=== PATIENT | female | born 1955 | race Caucasian/White ===

== ENCOUNTER 2023-01-05 08:02 | Emergency (ER) | payer OTHER, MEDICARE ==
[~2023-01-05] VITALS: Ht 162.6 cm; Wt 102.1 kg
[2023-01-05] MEDS ORDERED: LORA10ER PO (08:16)
[2023-01-05] MEDS ORDERED: OMEP20ER PO (08:17)
[2023-01-05] MEDS ORDERED: ELIQUIS5 M2 PO (08:17)
[2023-01-05] MEDS ORDERED: DILT30 PO (08:17)
[2023-01-05] MEDS ORDERED: FLUT1DIS2 INH (08:17)
== END 2023-01-05 09:35 | disposition home or self-care (01) ==
LOC: ER 08:02
DX: R11.0 Nausea (principal); V89.2XXA Person injured in unspecified motor-vehicle accident, traffic, initial encounter; I48.91 Unspecified atrial fibrillation; I45.2 Bifascicular block; Z88.8 Allergy status to other drugs, medicaments and biological substances; Z79.899 Other long term (current) drug therapy; Z79.01 Long term (current) use of anticoagulants
CPT/HCPCS: 93005; 93010; 99284-25